=== PATIENT | female | born 1970 | race Caucasian/White ===

== ENCOUNTER 2019-09-12 14:46 | Emergency (ER) | payer OTHER, SELFPAY ==
[2019-09-12 15:03] VITALS: BP 135/50; PULSE 99; RESP 22; TEMP 37.2; O2SAT 99
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
== END 2019-09-12 15:57 | disposition home or self-care (01) ==
PROVIDERS: Emergency Provider Emergency Medicine
DX: J10.1 Influenza due to other identified influenza virus with other respiratory manifestations (principal)
CPT/HCPCS: 87804; 99283

== ENCOUNTER 2020-06-18 14:41 | Emergency (ER) | payer OTHER, SELFPAY ==
--- NOTE | ~2020-06-18 | XR_ITS ---
EXAMINATION: XR chest 1V portable DATE: 06/18/2020 17:44 INDICATION: Cough, headache and running nose. TECHNIQUE: frontal view of the chest was obtained. COMPARISON: Chest radiograph dated 05/09/2015 FINDINGS: The lungs remain clear with no focal airspace opacities, pulmonary edema, pleural effusion or pneumot horax. The cardiomediastinal silhouette is normal. Visualized bones and soft tissues are unremarkable . IMPRESSION: 1. No acute cardiopulmonary disease. Reviewed, dictated and finalized at location [facility]. [facility]
[2020-06-18 14:57] VITALS: BP 119/68; PULSE 99; RESP 18; TEMP 37.1; O2SAT 99
--- NOTE | 2020-06-18 17:22 | ED.GENADULT ---
HPI - General Adult General Chief complaint: Headache Stated complaint: runny nose, sob Time Seen by Provider: 06/18/20 17:16 Source: patient History of Present Illness HPI narrative: Patient is a 50 y/o female complaining of headache for 3 days. She describes her headache as a pressure and rates it as 7/10. Her headache is located in bilateral temporal area. She took Aspirin and Ibuprofen which usually helps with her headache. She has some cough starting yesterday. She has no fever, chills, SOB, nausea or vomiting. She states that her roommate tested positive for COVID recently. Related Data Allergies Allergy/AdvReac Type Severity Reaction Status Date / Time No Known Allergies Allergy Unverified 03/24/16 08:35 Review of Systems Constitutional: Constitutional: Denies chills, Denies fever(s), Reports headache(s) and Denies weakness Eyes: Eyes: Denies blurry vision ENT: Reports headache(s) and Denies neck pain Cardiovascular: Cardiovascular: Denies chest pain and Denies dyspnea Respiratory: Respiratory: Reports cough and Denies dyspnea Gastrointestinal: Gastrointestinal: Denies abdominal pain, Denies diarrhea, Denies nausea and Denies vomiting Genitourinary: Genitourinary: Denies hematuria and Denies dysuria Musculoskeletal: Musculoskeletal: Denies back pain and Denies neck pain Neurologic: Reports headache(s) and Denies weakness [facility] Surgical History Surgical History History of orthopedic surgery Social History Social History Smoking status: Current every day smoker Gender identity (if verbalized by the patient): Female Exam Const: General: no acute distress and well developed Orientation/consciousness: oriented to person, oriented to place, oriented to time and patient oriented x3 HENMT: Head: normocephalic Ears: external ears normal General nose exam: Normal external nose present Eyes: General: appearance normal, both eyes and all related structures Conjunctivae: conjunctivae normal Neck: Neck: normal visual inspection and full ROM Chest: Chest palpation & inspection: normal inspection of the chest and no tenderness Resp: Effort & Inspection: normal respiratory effort Auscultation: clear to auscultation bilaterally Cardio: Rate: regular rate Rhythm: regular rhythm GI: GI Palp: No abdominal tenderness and Yes Soft to palpation Skin: General skin exam: normal color and turgor normal Neuro: General: oriented to person, oriented to place, oriented to time and patient oriented x3 Cognition (Neuro): normal cognition Extrem: General: normal to inspection, full ROM and no pedal edema Psych: Appearance: grossly normal Mental Status: mental status grossly normal Affect: normal affect Course Vital Signs Vital signs: Vital Signs Temperature 37.1 C 06/18/20 14:57 Pulse Rate 99 06/18/20 14:57 Respiratory Rate 18 06/18/20 14:57 Blood Pressure 119/68 06/18/20 14:57 Pulse Oximetry 99 06/18/20 14:57 Temperature 37.1 C 06/18/20 14:57 Pulse Rate 75 06/18/20 17:42 Respiratory Rate 18 06/18/20 14:57 Blood Pressure 115/68 06/18/20 17:42 Pulse Oximetry 100 06/18/20 17:42 Medical Decision Making Vital Signs Vital Signs: Vital Signs Temperature 37.1 C 06/18/20 14:57 Pulse Rate 99 06/18/20 14:57 Respiratory Rate 18 06/18/20 14:57 Blood Pressure 119/68 06/18/20 14:57 Pulse Oximetry 99 06/18/20 14:57 Temperature 37.1 C 06/18/20 14:57 Pulse Rate 75 06/18/20 17:42 Respiratory Rate 18 06/18/20 14:57 Blood Pressure 115/68 06/18/20 17:42 Pulse Oximetry 100 06/18/20 17:42 Lab Data Labs: Lab Results 06/18/20 Range/Units 18:00 SARS-CoV-2 RNA (RT-PCR) Pending Discharge Plan Discharge Clinical Impression: Person under investigation for COVID-19, Cough Headache Qualifiers: Headache type: unspecified
[2020-06-18 17:42] VITALS: BP 115/68; PULSE 75; O2SAT 100
[2020-06-18 18:28] VITALS: RESP 16
[2020-06-19 14:03] LABS: SARS-CoV-2 RNA PCR Negative
== END 2020-06-18 18:29 | disposition home or self-care (01) ==
PROVIDERS: Emergency Provider Emergency Medicine
DX: R51.9 Headache, unspecified (principal); Z20.828 Contact with and (suspected) exposure to other viral communicable diseases; F17.200 Nicotine dependence, unspecified, uncomplicated
CPT/HCPCS: 71045; 87635; 99283; C9803; U0003